=== PATIENT | female | born 1935 | race Caucasian/White ===

== ENCOUNTER → 2016-11-06 | Outpatient (CLI) | payer MEDICARE ==
[2016-11-06 14:04] LABS: BUN 30 mg/dL (7-18)
[2016-11-06 14:13] LABS: GFR (ESTIMATED) 27 ML/MIN (59-)
[2016-11-06 14:20] LABS: LYMPH # 2.1 K/mm3 (0.7-4.5); LYMPH % 24.2 % (10-50.0)
== END ==
LOC: LAB 13:39
PROVIDERS: Nurse Practitioner Family
DX: I10 Essential (primary) hypertension (principal)

== ENCOUNTER 2017-05-22 11:47 | Inpatient (IN) | payer MEDICARE ==
[~2017-05-22] VITALS: Ht 165.1 cm; Wt 69.1 kg
[2017-05-22] VITALS (15 sets, daily range): BP systolic 91–164; BP diastolic 55–96
--- NOTE | 2017-05-22 12:26 | Emergency Room Report ---
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 N Clinical Suspician of Infection? N Mental Status: 1 - Regular (Normal Baseline) Sepsis Risk:Low Sepsis Risk Have you (or family members/close friends) recently traveled outside the [place]? N If Yes, where/when: Have you had exposure to infectious disease within the past month? N TB? Other? Specify: Source patient, RN notes reviewed, family, RN/MD Exam Limitations no limitations Comment This is a 81-year-old female patient presenting to the emergency room with dyspnea on exertion, onset approximately one week ago, worse with ambulation. She has seen her PCP earlier this morning, refer her to the emergency room because of elevated cardiac enzymes (troponin of 0.79). By the time I evaluated the patient she has already been seen by cardiology who is planning to take her to the Thermostat Mechanic for a coronary angiogram. ALLERGIES Coded Allergies: No Known Allergies (05/22/17) History Medical History General Angina: No HI: No Hypertension? Yes Hyperlipidemia? No CHF? No COPD? No Asthma? No Hernia? No CVA? No Seizures? No Diabetes? No UTI? No Stones? No GB Disease: No Hepatitis? Yes Cataracts? No Glaucoma? No TB? No Cancer? No Immunization Hx DT/Tetanus Unknown Flu 2012-FSN Pneumonia Received In Past Surgical Hx Previous Surgery?Y ANERYSM RT ARM, TOOK VEIN FROM LT ARM TO REPLACE HYSTERECTOMY RT KNEE ARTHROSCOPY/MENIS RT KNEE REPLACEMENT REMOVL BENIGN MASS RT ARM REMOVAL PARATHYROID GLAND Family History Family Hx Diabetes Yes CAD Yes Hypertension No Hyperlipidemia No Cancer Yes TB Yes Social History Smoking Hx Smoker: Never Smoker Tobacco: No Alcohol Alcohol: No Review of Systems All Other Systems Reviewed and Negative Respiratory shortness of breath Physical Exam Vital Signs Vital Signs Date Time Temp Pulse Resp B/P Pulse O2 O2 Flow FiO2 Ox Delivery Rate 05/22 1300 98.4 68 20 130/89 94 05/22 1239 65 18 139/83 94 05/22 1150 98.4 68 20 130/89 94 General Appearance normal appearance, WD/WN, no apparent distress Respiratory Status Yes: trachea midline, chest symmetrical, non tender chest. No: respiratory distress. Lung Sounds bilateral: normal breath sounds, lungs clear. 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 No Comment 12:05pm-Case discussed with GRIFFIN Rene c/o Dr Lovelace, plan is to admit the patient to the floor and take her to molder labels for coronary angiogram. 12:40pm-case discussed with Og Barth, c/o Dr Chaudhry, advised of the above, agreeable with admission as well. Care transferred to Dr. Chaudhry/Dr. Sierra at this time, will write temporary admission orders per hospital protocol at this time. Upon patient's arrival to the floor the unit nurse will contact PCP/machine whitener in order to obtain full inpatient admission orders. Results/Orders Laboratory Tests 05/22/17 1230: Sodium 137, Potassium 4.9, Chloride 103, Carbon Dioxide 24, BUN 23 H, Creatinine 2.1 H, Estimated Creat Clear 24 L, Estimated GFR (MDRD) 23 L, Glucose 97, Calcium 9.7, Total Bilirubin 0.5, AST 28, ALT 11 L, Alkaline Phosphatase 116, Creatine Kinase 89, CK-MB (CK-2) Rel Index 4.3 H, CK and CKMB Interp 3.8 H, Troponin I 1.11 H, B-Natriuretic Peptide 206 H, Total Protein 8.3 H, Albumin 3.5, Globulin 4.8 H, Albumin/Globulin Ratio 0.7 L, PT 10.4, INR 0.96, APTT 21.7 L, D-Dimer 1660 *H, WBC 9.2, RBC 3.63 L, Hgb 9.5 L, Hct 31.1 L, MCV 85.7, RDW 14.0, Plt Count 295, MPV 8.7, Gran % 61.4, Gran # 5.7, Lymphocytes % 23.5, Monocytes % 7.6, Eosinophils % 6.4, Basophils % 1.1, Lymphocytes # 2.2, Monocytes # 0.7, Eosinophils # 0.6 H, Basophils # 0.1, PUBS MCHC 30.5 L, MCH 26.1 L Current Medication Orders Sig/Viki Start time Last Medication Dose Route Stop Time Status Admin Sodium Chloride 10 ML PRN PRN 05/22 1315 AC IV 05/23 1308 Fentanyl Citrate 25 MCG PRN PRN 05/22 1230 AC 05/22 IV 05/22 2300 1431 Fentanyl Citrate 50 MCG PRN PRN 05/22 1230 AC 05/22 IV 05/22 2300 1452 Flumazenil 0.2 MG PRN PRN 05/22 1230 AC IV 05/22 2300 Heparin Sodium (Beef 5,000 UNITS PRN PRN 05/22 1230 AC 05/22 Lung) IV 05/23 1230 1348 Heparin Sodium/ 3,000 UNITS PRN PRN 05/22 1230 AC 05/22 Sodium Chloride IV 05/23 1230 1347 Lidocaine HCl 20 ML ONCE ONE 05/22 1230 DC IJ 05/22 1231 Midazolam HCl 1 MG PRN PRN 05/22 1230 AC IV 05/22 2300 Midazolam HCl 1 MG PRN PRN 05/22 1230 AC 05/22 IV 05/22 2300 1501 Naloxone HCl 0.4 MG [id number] PRN 05/22 1230 IV 05/22 2300 Nitroglycerin 800 MCG PRN PRN 05/22 1230 AC 05/22 IV 05/23 1230 1452 Prasugrel 60 MG ONCE ONE 05/22 1230 PA 05/22 PO 05/22 1231 1226 Verapamil HCl 5 MG PRN PRN 05/22 1230 05/22 IV 05/23 1230 1349 Prasugrel 0 .STK-MED ONE 05/22 1224 DC PO Aspirin 243 MG ONCE ONE 05/22 1215 PA 05/22 PO 05/22 1216 1226 Nitroglycerin 0.5 IN ONCE ONE 05/22 1215 DC 05/22 TD 05/22 1216 1227 Aspirin 0 .STK-MED ONE 05/22 1205 DC .ROUTE Nitroglycerin 0 .STK-MED ONE 05/22 1205 DC .ROUTE Orders Procedure Date/time Status Decision to admit 05/22 1313 Active IV SALINE LOCK 05/22 1308 Active FORMAL SERVICE WAITER 05/22 1308 Active PARTIAL THROMBOPLASTIN TIME 05/22 1308 Complete PROTHROMBIN TIME 05/22 1308 Complete D-DIMER 05/22 1308 Complete COMPLETE METABOLIC PANEL 05/22 1308 Complete CBC WITH AUTO DIFF 05/22 1308 Complete CARDIAC ENZYMES 05/22 1308 Complete BRAIN NATRIURETIC PEPTIDE 05/22 1308 Complete VITAL SIGNS 05/22 UNK Active Schedule Procedure 05/22 UNK Active PREPARE CONSENT 05/22 UNK Active CM/EKG CM/flexboard operator Rhythm Normal Sinus Rhythm Rate 85 Ectopy No Comments no acute ischemic changes EKG rate, NSR, rhythm, no evid. of ischemic chgs, no ectopy, normal QRS, normal MT, no EKG for comparison, non-spec. ST/Twave chgs, ST elevation, ST depression, LBBB, RBBB, ectopy, abnormal Q waves ANISHA Score for N-Stemi/Angina ANISHA N-STEMI SCORE ANISHA N-STEMI SCORE Response Value Age of patient 65 yrs or more 1 Number of risk factors for CAD Presence of 3 or more 1 Prior coronary artery stenosis (seen in angiography) 50% or more 1 ST-Segment deviation on ECG (>1 min) Absent 0 Prior aspirin intake ASA intake in last 7 days 1 Severe anginal chest pain No or 1 episode in 24h 0 Elevated cardiac markers(CK-MB or troponin) Present 1 Total 5 Risk Stratification 5-7= High Risk Patients Departure Departure Time of Disposition 1230 Disposition Still a Patient Clinical Impression Primary Impression: NSTEMI (non-ST elevated myocardial infarction) Condition STABLE ED Critical Care Critical Care Yes Time spent 30-74 min Vital system(s) involved: Circulatory Failure I was present at bedside for Coordinating pt's care, Interpreting EKGs/Strips , During my initial exam, Reviewing lab results, Reviewing old records, Discussing pt condition, For re-examinations, Examining radiographs If Critical Care minutes are documented, the time involved in the performance of seperately reportable procedures was not counted toward critical care time documented. I directly delivered medical care to this critically ill and/or injured patient. Timely evaluation and treatment was necessary to address the significant organ system(s) dysfunction present in this patient. at 1706
--- NOTE | 2017-05-22 12:26 | Emergency Room Report ---
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 N Clinical Suspician of Infection? N Mental Status: 1 - Regular (Normal Baseline) Sepsis Risk:Low Sepsis Risk Have you (or family members/close friends) recently traveled outside the [place]? N If Yes, where/when: Have you had exposure to infectious disease within the past month? N TB? Other? Specify: Source patient, RN notes reviewed, family, RN/MD Exam Limitations no limitations Comment This is a 81-year-old female patient presenting to the emergency room with dyspnea on exertion, onset approximately one week ago, worse with ambulation. She has seen her PCP earlier this morning, refer her to the emergency room because of elevated cardiac enzymes (troponin of 0.79). By the time I evaluated the patient she has already been seen by cardiology who is planning to take her to the Brain Wave Technician for a coronary angiogram. ALLERGIES Coded Allergies: No Known Allergies (05/22/17) History Medical History General Angina: No VT: No Hypertension? Yes Hyperlipidemia? No CHF? No COPD? No Asthma? No Hernia? No CVA? No Seizures? No Diabetes? No UTI? No Stones? No GB Disease: No Hepatitis? Yes Cataracts? No Glaucoma? No TB? No Cancer? No Immunization Hx DT/Tetanus Unknown Flu 2012-FSN Pneumonia Received In Past Surgical Hx Previous Surgery?Y ANERYSM RT ARM, TOOK VEIN FROM LT ARM TO REPLACE HYSTERECTOMY RT KNEE ARTHROSCOPY/MENIS RT KNEE REPLACEMENT REMOVL BENIGN MASS RT ARM REMOVAL PARATHYROID GLAND Family History Family Hx Diabetes Yes CAD Yes Hypertension No Hyperlipidemia No Cancer Yes TB Yes Social History Smoking Hx Smoker: Never Smoker Tobacco: No Alcohol Alcohol: No Review of Systems All Other Systems Reviewed and Negative Respiratory shortness of breath Physical Exam Vital Signs Vital Signs Date Time Temp Pulse Resp B/P Pulse O2 O2 Flow FiO2 Ox Delivery Rate 05/22 1300 98.4 68 20 130/89 94 05/22 1239 65 18 139/83 94 05/22 1150 98.4 68 20 130/89 94 General Appearance normal appearance, WD/WN, no apparent distress Respiratory Status Yes: trachea midline, chest symmetrical, non tender chest. No: respiratory distress. Lung Sounds bilateral: normal breath sounds, lungs clear. 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 No Comment 12:05pm-Case discussed with GRIFFIN Rene c/o Dr Lovelace, plan is to admit the patient to the floor and take her to cath lab radiological technologist for coronary angiogram. 12:40pm-case discussed with Og Barth, c/o Dr Chaudhry, advised of the above, agreeable with admission as well. Care transferred to Dr. Chaudhry/Dr. Sierra at this time, will write temporary admission orders per hospital protocol at this time. Upon patient's arrival to the floor the unit nurse will contact PCP/risk specialist in order to obtain full inpatient admission orders. Results/Orders Laboratory Tests 05/22/17 1230: Sodium 137, Potassium 4.9, Chloride 103, Carbon Dioxide 24, BUN 23 H, Creatinine 2.1 H, Estimated Creat Clear 24 L, Estimated GFR (MDRD) 23 L, Glucose 97, Calcium 9.7, Total Bilirubin 0.5, AST 28, ALT 11 L, Alkaline Phosphatase 116, Creatine Kinase 89, CK-MB (CK-2) Rel Index 4.3 H, CK and CKMB Interp 3.8 H, Troponin I 1.11 H, B-Natriuretic Peptide 206 H, Total Protein 8.3 H, Albumin 3.5, Globulin 4.8 H, Albumin/Globulin Ratio 0.7 L, PT 10.4, INR 0.96, APTT 21.7 L, D-Dimer 1660 *H, WBC 9.2, RBC 3.63 L, Hgb 9.5 L, Hct 31.1 L, MCV 85.7, RDW 14.0, Plt Count 295, MPV 8.7, Gran % 61.4, Gran # 5.7, Lymphocytes % 23.5, Monocytes % 7.6, Eosinophils % 6.4, Basophils % 1.1, Lymphocytes # 2.2, Monocytes # 0.7, Eosinophils # 0.6 H, Basophils # 0.1, PUBS MCHC 30.5 L, MCH 26.1 L Current Medication Orders Sig/Viki Start time Last Medication Dose Route Stop Time Status Admin Sodium Chloride 10 ML PRN PRN 05/22 1315 AC IV 05/23 1308 Fentanyl Citrate 25 MCG PRN PRN 05/22 1230 AC 05/22 IV 05/22 2300 1431 Fentanyl Citrate 50 MCG PRN PRN 05/22 1230 AC 05/22 IV 05/22 2300 1452 Flumazenil 0.2 MG PRN PRN 05/22 1230 AC IV 05/22 2300 Heparin Sodium (Beef 5,000 UNITS PRN PRN 05/22 1230 AC 05/22 Lung) IV 05/23 1230 1348 Heparin Sodium/ 3,000 UNITS PRN PRN 05/22 1230 AC 05/22 Sodium Chloride IV 05/23 1230 1347 Lidocaine HCl 20 ML ONCE ONE 05/22 1230 DC IJ 05/22 1231 Midazolam HCl 1 MG PRN PRN 05/22 1230 AC IV 05/22 2300 Midazolam HCl 1 MG PRN PRN 05/22 1230 AC 05/22 IV 05/22 2300 1501 Naloxone HCl 0.4 MG [id number] PRN 05/22 1230 IV 05/22 2300 Nitroglycerin 800 MCG PRN PRN 05/22 1230 AC 05/22 IV 05/23 1230 1452 Prasugrel 60 MG ONCE ONE 05/22 1230 SC 05/22 PO 05/22 1231 1226 Verapamil HCl 5 MG PRN PRN 05/22 1230 05/22 IV 05/23 1230 1349 Prasugrel 0 .STK-MED ONE 05/22 1224 DC PO Aspirin 243 MG ONCE ONE 05/22 1215 SC 05/22 PO 05/22 1216 1226 Nitroglycerin 0.5 IN ONCE ONE 05/22 1215 DC 05/22 TD 05/22 1216 1227 Aspirin 0 .STK-MED ONE 05/22 1205 DC .ROUTE Nitroglycerin 0 .STK-MED ONE 05/22 1205 DC .ROUTE Orders Procedure Date/time Status Decision to admit 05/22 1313 Active IV SALINE LOCK 05/22 1308 Active AIR CREW SUPERVISOR 05/22 1308 Active PARTIAL THROMBOPLASTIN TIME 05/22 1308 Complete PROTHROMBIN TIME 05/22 1308 Complete D-DIMER 05/22 1308 Complete COMPLETE METABOLIC PANEL 05/22 1308 Complete CBC WITH AUTO DIFF 05/22 1308 Complete CARDIAC ENZYMES 05/22 1308 Complete BRAIN NATRIURETIC PEPTIDE 05/22 1308 Complete VITAL SIGNS 05/22 UNK Active Schedule Procedure 05/22 UNK Active PREPARE CONSENT 05/22 UNK Active CM/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 of ischemic chgs, no ectopy, normal QRS, normal UT, no EKG for comparison, non-spec. ST/Twave chgs, ST elevation, ST depression, LBBB, RBBB, ectopy, abnormal Q waves ANISHA Score for N-Stemi/Angina ANISHA N-STEMI SCORE ANISHA N-STEMI SCORE Response Value Age of patient 65 yrs or more 1 Number of risk factors for CAD Presence of 3 or more 1 Prior coronary artery stenosis (seen in angiography) 50% or more 1 ST-Segment deviation on ECG (>1 min) Absent 0 Prior aspirin intake ASA intake in last 7 days 1 Severe anginal chest pain No or 1 episode in 24h 0 Elevated cardiac markers(CK-MB or troponin) Present 1 Total 5 Risk Stratification 5-7= High Risk Patients Departure Departure Time of Disposition 1230 Disposition Still a Patient Clinical Impression Primary Impression: NSTEMI (non-ST elevated myocardial infarction) Condition STABLE ED Critical Care Critical Care Yes Time spent 30-74 min Vital system(s) involved: Circulatory Failure I was present at bedside for Coordinating pt's care, Interpreting EKGs/Strips , During my initial exam, Reviewing lab results, Reviewing old records, Discussing pt condition, For re-examinations, Examining radiographs If Critical Care minutes are documented, the time involved in the performance of seperately reportable procedures was not counted toward critical care time documented. I directly delivered medical care to this critically ill and/or injured patient. Timely evaluation and treatment was necessary to address the significant organ system(s) dysfunction present in this patient. at 1702
--- NOTE | 2017-05-22 12:39 | CONSULT NOTE ---
Standard Demographics Patient Demo Date of Consultation: 05/22/17 Referring Provider: Pako Chaudhry MD Reason for Consultation: NSTEMI PRIMARY DIAGNOSIS: SOA Problem list Problem list: 1. 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 Patient was seen by her PCP today the labs obtained this morning, the cardiac troponins returned elevated and prior to being seen in our clinic she was sent to the emergency department for further evaluation. Patient relates a 2-3 week history of exertional shortness of breath without chest pain, pressure or tightness. She denies any history of tobacco use, diabetes or significant family history of heart disease. Initial electrocardiogram is sinus without acute ST segment changes. Cardiology consulted for evaluation. Past Medical History: General: Hypertension Yes CVA No Seizures No TB No COPD No Asthma No Diabetes No Angina No [place] No Hyperlipidemia No Cancer No Ulcers No GB Disease No Other YELLOW JAUNDICE Past Surgical HX: Previous Surgery?Y ANERYSM RT ARM, TOOK VEIN FROM LT ARM TO REPLACE HYSTERECTOMY RT KNEE ARTHROSCOPY/MENIS RT KNEE REPLACEMENT REMOVL BENIGN MASS RT ARM REMOVAL PARATHYROID GLAND Allergies Coded Allergies: No Known Allergies (05/22/17) Home medications: Reported Medications Atenolol (Atenolol) 100 MG PO BID #90 Current Medications: Current Medications Fentanyl Citrate 25 MCG PRN PRN IV (UNV) Fentanyl Citrate 50 MCG PRN PRN IV (UNV) Flumazenil 0.2 MG PRN PRN IV (UNV) Heparin Sodium (Beef Lung) 5,000 UNITS PRN PRN IV (UNV) Heparin Sodium/Sodium Chloride 3,000 UNITS PRN PRN IV (UNV) Lidocaine HCl 20 ML ONCE ONE IJ (UNV) Midazolam HCl 1 MG PRN PRN IV (UNV) Midazolam HCl 1 MG PRN PRN IV (UNV) Naloxone HCl 0.4 MG [id number] PRN IV (UNV) Nitroglycerin 800 MCG PRN PRN IV (UNV) Prasugrel 60 MG ONCE ONE PO (DC) Verapamil HCl 5 MG PRN PRN IV (UNV) Prasugrel 0 .STK-MED ONE PO (DC) Aspirin 243 MG ONCE ONE PO (DC) Nitroglycerin 0.5 IN ONCE ONE TD (DC) Aspirin 0 .STK-MED ONE .ROUTE (DC) Nitroglycerin 0 .STK-MED ONE .ROUTE (DC) Immunization HX DT/Tetanus Unknown Flu 2012-FSN Pneumonia RECEIVED IN PAST Family history Family HX Family Hx Insignificant No Diabetes Yes CAD Yes Hypertension No Hyperlipidemia No Cancer Yes TB Yes Social Hx: Smoking HX Tobacco No Alcohol Alcohol: No Hx of Drug Use Drug Use? No Patient's support system is good Review of systems: Constitutional No: no symptoms reported. Respiratory see HPI, SOB with excertion. Cardiovascular No chest pain Gastrointestinal/Abdominal No no symptoms reported Genitourinary No: no symptoms reported. Musculoskeletal No: no symptoms reported. Neurological No: no symptoms reported. Exam: Admission Vital Signs: 1ST Vital Signs Result Date Time Pulse Ox 94 09/05 1150 B/P 130/89 09/05 1150 Temp 98.4 09/05 1150 Pulse 68 09/05 1150 Resp 20 09/05 1150 Last Vital Signs: Vital Signs Result Date Time Pulse Ox 94 09/05 1150 B/P 130/89 09/05 1150 Temp 98.4 09/05 1150 Pulse 68 09/05 1150 Resp 20 09/05 1150 Exam General appearance: alert, awake, no acute distress Neck: no carotid bruit, no JVD Cardiovascular: regular rate & rhythm, no murmur Respiratory: clear to auscultation, good air movement ABD: soft, no tenderness Extremities: moves all, no peripheral edema Neuro: alert, intact, oriented Plan: Assessment: 1. Non-ST elevation myocardial infarction. Patient will be given aspirin, loading dose of Effient and started on nitroglycerin paste. She takes atenolol daily and has taken it this morning. She will be sent for cardiac catheterization today. 2. Hypertension Recommendations: Discussed with Dr. Sierra. See above. at 0931
[2017-05-22 13:26] LABS: HEMOGLOBIN 9.5 g/dL (12.2-16.2); LYMPH # 2.2 K/mm3 (0.7-4.5); LYMPH % 23.5 % (10-50.0)
--- NOTE | 2017-05-22 15:37 | RADIOLOGY REPORT PS360 ---
CARDIAC CATHETERIZATION DATE OF CATHETERIZATION:05/22/2017 1:41 PM PROCEDURES: 1. Left heart catheterization 2. Left ventriculogram 3. Selective coronary angiogram 4. Drug-eluting stent deployment to the proximal left anterior descending artery 5. Drug-eluting stent deployment to the proximal mid dominant right coronary artery INDICATION FOR TEST: 1. Acute non-ST elevation myocardial infarction 2. Coronary artery disease Informed consent was obtained prior to the procedure. COMPLICATIONS: None ESTIMATED BLOOD LOSS: Less than 10 ml. TECHNIQUE: One percent lidocaine used to anesthetize the right anterior aspect of the wrist. The right radial artery was accessed via the Seldinger technique. A 6 Macedonian sheath was placed in the right radial artery. 2.5 mg of verapamil, 800 mcg of nitroglycerin and 5000 U Heparin were given through the arterial sheath. A trap catheter was used to perform left heart catheterization left ventriculogram and selective coronary angiography. 2000 units of heparin was administered intravenously. An [employer] left guide catheter was used intubate the left main artery and a choice PT extra-support wire was placed into the distal LAD. A 3 mm x 12 mm balloon was used to predilate the proximal critical stenotic lesion. Following this a 3 mm x 30 mm resolute Shanks stent was placed in the proximal LAD and deployed at 24 carine. ANISHA II flow improved to ANISHA-3 flow. Following this the apparatus was removed and the guide catheter was used intubate the right coronary artery. This same choice PT wire was used to traverse the subtotal occlusion. A guideline her was advanced in order to provide additional support and a 3 mm x 12 mm balloon was taken at 20 carine to predilate the critical 99% stenosis. Following this a 4 mm x 34 mm resolute Shanks stent was deployed at 12 carine reducing the critical greater than 99% stenosis to 0%. Excellent angiographic results were obtained with improvement of ANISHA II flow up to ANISHA-3 flow at the end of the procedure. The ACT was measured out of range. Patient received 60 mg of Effient while in the emergency department. At the end of the procedure the sheath was removed good hemostasis was achieved using TR banding patient transferred to the postop holding area in stable condition ANGIOGRAPHIC RESULTS: 1. The left main artery normal 2. The left anterior descending artery has a critical proximal 99% followed by additional 90% stenosis associated with ANISHA II flow. After the stent was deployed ANISHA-3 flow was present with a widely patent proximal stent and no other obstructive disease within the mid to distal LAD 3. The circumflex artery is nondominant and has mild 20% nonflow limiting stenoses 4. The right coronary artery is a massively large dominant vessel and has a critical 99% stenosis immediately proximal to the RV marginal branch associated with ANISHA II flow down the right coronary artery. After the stent was deployed no significant lesion was identified with ANISHA-3 flow down the remaining vessel. The RV marginal branch was jailed upon stenting of the proximal mid dominant right coronary. Distally the posterior descending artery and posterior lateral ventricular branch are free of significant disease 5. The BARRY ventriculogram reveals 65% 6. The left ventricular end-diastolic pressure 30 mmHg IMPRESSION: 1. Critical 2 vessel coronary artery disease 2. Successful stenting of the critically disease proximal LAD. Critical lesions reduced to 0% with 1 drug-eluting stent 3. Successful stenting of the critically disease proximal to mid massively large dominant right coronary artery. Critical 99% stenosis reduced to 0% with 1 drug-eluting stent 4. Normal ejection fraction 5. Severely elevated LVEDP 6. Jailed and occluded RV marginal branch following stenting of the dominant right coronary artery PLAN: 1. We will switch Effient to Brilinta 90 mg twice a day 2. Aspirin 81 mg daily 3. LDL less than 55 4. Cardiac rehabilitation 5. Patient should be monitored overnight. She might require supportive care due to the RV marginal branch occlusion. Should she develop hypotension she should respond well to IV fluids.
[2017-05-22] MEDS ORDERED: ATENOLOL100 MG PO (19:16)
[2017-05-23] VITALS (7 sets, daily range): BP systolic 111–134; BP diastolic 63–67
[2017-05-23 05:49] LABS: HEMOGLOBIN 9.3 g/dL (12.2-16.2); LYMPH # 1.6 K/mm3 (0.7-4.5); LYMPH % 17.5 % (10-50.0)
--- NOTE | 2017-05-23 07:13 | PHARMACY CLINIC NOTE ---
Patient Demographics Patient Demographics Admission date: 05/22/17 Date: 05/23/17 Time: 07 Allergies Coded Allergies: No Known Allergies (05/22/17) HEIGHT- FT: 5 IN: 5.00 K.088 VTE General Information Labs: Laboratory Tests 05/23 05/22 0535 1230 Coagulation PT (9.4 - 11.8 SECONDS) 10.4 INR (0.9 - 1.1) 0.96 APTT (23.6 - 34.0 SECONDS) 21.7 L Hematology Hgb (12.2 - 16.2 g/dL) 9.3 L 9.5 L Hct (37.0 - 47.0 %) 30.8 L 31.1 L Plt Count (142 - 424 K/mm3) 279 295 Disclaimer The following section includes nursing documentation that has been pulled in for pharmacy review. Patient's VTE score: 4 Patient's VTE Risk: LOW RISK Clinical trial participant? No VTE prophylaxis [id number] VTE prophylaxis ordered? Yes Type of prophylaxis/treatment: JAYSON at 0713
--- NOTE | 2017-05-23 09:15 | ACUTE CARE PROGRESS NOTE (QUA) ---
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 NSTEMI (non-ST elevated myocardial infarction) 2. Anemia 3. Renal insufficiency Patient condition Improving Plan: initiate discharge plan This inpt stay is expected to cross 2 MNs from start of care Yes Comments: will plan on d/c if ok with card at 0915
--- NOTE | 2017-05-23 09:15 | ACUTE CARE PROGRESS NOTE (QUA) ---
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 NSTEMI (non-ST elevated myocardial infarction) 2. Anemia 3. Renal insufficiency Patient condition Improving Plan: initiate discharge plan This inpt stay is expected to cross 2 MNs from start of care Yes Comments: will plan on d/c if ok with card at 0915
--- NOTE | 2017-05-23 09:40 | ACUTE CARE PROGRESS NOTE (QUA) ---
Progress Notes Subjective Date 05/23/17 Time 0929 Note 81 yo WF in bed in NAD. No chest pain or SOA overnight. Objective Findings Last VS-Temp:98.5 B/P:126/63 Pulse:80 Resp:22 SaO2:96 ROOM AIR Last weight lbs:152 oz:5 K.088 Method:Digital Scales Exam General appearance: alert, awake, no acute distress Cardiovascular: regular rate & rhythm Respiratory: clear to auscultation Reviewed: medications, vital signs, lab results Assessment/Plan Problem List 1. NSTEMI (non-ST elevated myocardial infarction) 2. Anemia 3. Renal insufficiency Patient condition Stable Plan: OK for discharge home on ASA 81 mg daily, Brilinta 90 mg BID, atenolol as previously taking and atorvastatin 40 mg daily. Follow up in one week. This inpt stay is expected to cross 2 MNs from start of care Yes at 0939
[2017-05-23] MEDS ORDERED: BRILINTA90 M1 PO (10:30)
[2017-05-23] MEDS ORDERED: ADULT LOW DOSE81 MG PO (10:30)
[2017-05-23] MEDS ORDERED: ATORVASTATIN 4040 MG PO (10:30)
--- NOTE | 2017-05-23 10:35 | DISCHARGE SUMMARY STANDARD ---
Demographics Admit date: 05/22/17 Discharge date: 05/23/17 History of present illness History of present illness 81-year-old white female with history of hypertension was referred to see us today due to exertional shortness of breath. Patient was seen by her PCP today the labs obtained this morning, the cardiac troponins returned elevated and prior to being seen in our clinic she was sent to the emergency department for further evaluation. Patient relates a 2-3 week history of exertional shortness of breath without chest pain, pressure or tightness. She denies any history of tobacco use, diabetes or significant family history of heart disease. Initial electrocardiogram is sinus without acute ST segment changes. Cardiology consulted for evaluation. Hospital Course Hospital Course: cardiology consult, heart cath results: PLAN: 1. We will switch Effient to Brilinta 90 mg twice a day 2. Aspirin 81 mg daily 3. LDL less than 55 4. Cardiac rehabilitation 5. Patient should be monitored overnight. She might require supportive care due to the RV marginal branch occlusion. Should she develop hypotension she should respond well to IV fluids. Discharge diagnoses Problem List 1. NSTEMI (non-ST elevated myocardial infarction) 2. Anemia 3. Renal insufficiency Medications Medications: Discharge meds are as noted. Follow up Follow up in office in: 7 DAYS with: Leonard Sierra MD Comment: rounded by abebe at 0158
== END 2017-05-23 10:55 | disposition home or self-care (01) | DRG 247 ==
LOC: ER 11:47 → ICU 13:14 → 2ND 13:45 → ICU 14:17
PROVIDERS: Emergency Medicine; Internal Medicine
PROC: 027135Z Dilation of Coronary Artery, Two Arteries with Two Drug-eluting Intraluminal Devices, Percutaneous Approach (ICD-10-PCS; principal; 2017-05-22 13:30)
PROC: B2151ZZ Fluoroscopy of Left Heart using Low Osmolar Contrast (ICD-10-PCS; principal; 2017-05-22 13:30)
PROC: 4A023N7 Measurement of Cardiac Sampling and Pressure, Left Heart, Percutaneous Approach (ICD-10-PCS; principal; 2017-05-22 13:30)
PROC: B2111ZZ Fluoroscopy of Multiple Coronary Arteries using Low Osmolar Contrast (ICD-10-PCS; principal; 2017-05-22 13:30)
DX: I21.4 Non-ST elevation (NSTEMI) myocardial infarction (principal); R06.09 Other forms of dyspnea; I10 Essential (primary) hypertension; I25.119 Atherosclerotic heart disease of native coronary artery with unspecified angina pectoris; D64.9 Anemia, unspecified; N28.9 Disorder of kidney and ureter, unspecified
CPT/HCPCS: C1725; C1769; C1876; J1644; Q9967

== ENCOUNTER → 2017-05-22 | Outpatient (CLI) | payer MEDICARE ==
[~2017-05-22] MED LIST: ADULT LOW DOSE81 MG PO; ATENOLOL100 MG PO; ATORVASTATIN 4040 MG PO; BRILINTA90 M1 PO
[2017-05-22 11:34] LABS: HEMOGLOBIN 10.2 g/dL (12.2-16.2); LYMPH # 2.4 K/mm3 (0.7-4.5); LYMPH % 23.1 % (10-50.0)
[2017-05-22 11:36] LABS: BUN 23 mg/dL (7-18)
[2017-05-22 11:38] LABS: GFR (ESTIMATED) 22 ML/MIN (59-)
--- NOTE | 2017-05-22 11:44 | RADIOLOGY REPORT PS360 ---
CHEST(2 VIEWS-NOT PORTABLE) HISTORY: Shortness of breath SOB ORDERING PHYSICIAN: Flor Barth APRN PATIENT AGE: 81 years COMPARISON: None available FINDINGS: There is mild cardiomegaly without failure. Hiatal hernia is present. There are increased markings in the right lung base medially which may be due to pericardial fat pad.. Patchy density is present in the left lung base laterally probably due to soft tissue attenuation from the overlying chest wall or pleura. There is severe wedging involving the T10 vertebral body age-indeterminate. There are no previous exams available for comparison. IMPRESSION: 1. Cardiomegaly with hiatal hernia. 2. Increased density right lung base medially which could be due to pericardial fat pad or underlying infiltrate. Probable pleural thickening versus soft tissue attenuation left lung base. 3. Wedging of T10 age-indeterminate
== END ==
LOC: LAB 10:49 → RT 10:49
PROVIDERS: Nurse Practitioner Family
DX: R06.02 Shortness of breath (principal)

== ENCOUNTER → 2017-06-22 | Outpatient (CLI) | payer MEDICARE ==
[2017-06-22 11:04] LABS: URINE BILIRUBIN - DIPSTICK NEGATIVE (NEG); URINE BLOOD NEGATIVE (NEG)
[2017-06-22 11:09] LABS: HEMOGLOBIN 9.8 g/dL (12.2-16.2); LYMPH # 1.7 K/mm3 (0.7-4.5); LYMPH % 16.1 % (10-50.0)
[2017-06-22 15:23] LABS: BUN 22 mg/dL (7-18)
[2017-06-22 15:33] LABS: GFR (ESTIMATED) 23 ML/MIN (59-)
[2017-06-23 08:38] LABS: Vitamin D, 25-Hydroxy 27.5 ng/mL (30.0-100.0)
[2017-06-23 14:37] LABS: Calcium, Ionized 5.8 mg/dL (4.5-5.6)
== END ==
LOC: LAB 10:39
PROVIDERS: Internal Medicine Nephrology
DX: I25.10 Atherosclerotic heart disease of native coronary artery without angina pectoris (principal); E78.5 Hyperlipidemia, unspecified; Z95.5 Presence of coronary angioplasty implant and graft; R82.90 Unspecified abnormal findings in urine; N18.4 Chronic kidney disease, stage 4 (severe)